=== PATIENT | female | born 1950 | race Caucasian/White ===

== ENCOUNTER 2017-12-03 08:16 | Emergency (ER) | payer MEDICARE, OTHER ==
--- NOTE | 2017-12-03 09:06 | EDM.PDOC ---
ED HPI GENERAL MEDICAL PROBLEM - General Chief Complaint: Skin Complaint Stated Complaint: RASH ON BOTH LEGS Time Seen by Provider: 12/03/17 08:45 Source of Information: Reports: Patient History Limitations: Reports: No Limitations - History of Present Illness INITIAL COMMENTS - FREE TEXT/NARRATIVE: 67-year-old female has had a persistent redness on her lower extremities, especially in the right side and in the past 24 hours it's become more tender, markedly more reddened and inflamed looking. She has no fever. No trauma. Denies shortness of breath or knee pain. Severity: Mild Associated Symptoms: Reports: No Other Symptoms - Related Data Allergies Allergy/AdvReac Type Severity Reaction Status Date / Time cephalexin Allergy Cannot Verified 12/03/17 08:38 Remember diclofenac Allergy Cannot Verified 12/03/17 08:38 Remember chlorthalidone AdvReac Cannot Verified 12/03/17 08:38 Remember Home Meds: Home Meds Furosemide [Lasix] 20 mg PO DAILY 12/03/17 [History] Metoprolol Succinate [Toprol XL 100mg] 100 mg PO DAILY 12/03/17 [History] amLODIPine Besylate [Amlodipine Besylate] 5 mg PO DAILY 12/03/17 [History] glipiZIDE [Glucotrol XL] 5 mg PO DAILY 12/03/17 [History] Past Medical History Cardiovascular History: Reports: Hypertension RECOVERY AGENT History: Reports: Polycystic Ovaries, Musculoskeletal History: Reports: Fracture Endocrine/Metabolic History: Reports: Diabetes, Type II - Past Surgical History Female Surgical History: Reports: Hysterectomy, Salpingo-Oophorectomy Social & Family History - Tobacco Use Smoking Status *Q: Never Smoker - Caffeine Use Caffeine Use: Reports: None - Recreational Drug Use Recreational Drug Use: No ED ROS GENERAL - Review of Systems Review Of Systems: See Below Constitutional: Denies: Fever, Chills Respiratory: Denies: Shortness of Breath GI/Abdominal: Denies: Abdominal Pain Skin: Reports: Other (See history of present illness) Neurological: Denies: Paresthesia ED EXAM, SKIN/RASH Exam: See Below Exam Limited By: No Limitations General Appearance: Alert, No Apparent Distress Respiratory/Chest: No Respiratory Distress Extremities: Other (Exam of the lower extremities reveal slight edema of the right lower extremity, a macular erythematous rash circumferential around the lower right leg near the ankle with a few small patches of erythema on the left lower leg. She has some fairly large purpuric areas of nonblanching darker erythema which is more tender. It's also warmer to the touch) Course - Vital Signs Last Recorded V/S: Last Vital Signs Temp 96.6 F 12/03/17 08:45 Pulse 77 12/03/17 08:45 Resp 14 12/03/17 08:45 BP 163/66 H 12/03/17 08:45 Pulse Ox 96 12/03/17 08:45 - Re-Assessments/Exams Free Text/Narrative Re-Assessment/Exam: 12/03/17 09:04 This does not appear to be a contact dermatitis but possibly a nonpurulent cellulitis developing. Patient will be covered with cephalexin 500 mg 3 times a day and will recheck in 48 hours when home to reassess to see if she needs steroids or possibly further evaluation with ultrasound or other modality. Departure - Departure Time of Disposition: 09:16 Disposition: Home, Self-Care 01 Condition: Good Clinical Impression: Cellulitis Qualifiers: Site of cellulitis: extremity Site of cellulitis of extremity: lower extremity Laterality: right Qualified Code(s): L03.115 - Cellulitis of right lower limb - Discharge Information Instructions: Cellulitis, Adult Referrals: PCP,None [Primary Care Provider] - Forms: ED Department Discharge Care Plan Goals: Take antibiotic 3 times a day for the next 7 days if improving, or recheck in the next 24-48 hours if not improving. Elevating the right leg may help with swelling.
== END 2017-12-03 09:26 | disposition home or self-care (01) ==
LOC: JP.ED 08:16
DX: L03.115 Cellulitis of right lower limb (principal); E11.9 Type 2 diabetes mellitus without complications; Z79.84 Long term (current) use of oral hypoglycemic drugs; Z79.899 Other long term (current) drug therapy; Z88.6 Allergy status to analgesic agent; Z88.1 Allergy status to other antibiotic agents; Z88.8 Allergy status to other drugs, medicaments and biological substances
CPT/HCPCS: 99283